=== PATIENT | female | born 1950 | race Two or more races ===

== ENCOUNTER 2022-09-13 13:19 | Outpatient (CLI) | payer OTHER | END 2022-09-13 13:20 | disposition home or self-care (01) | LOC: LAB 13:19 | PROVIDERS: ATTEND Specialist | DX: R80.9 Proteinuria, unspecified (principal); E78.2 Mixed hyperlipidemia; I13.10 Hypertensive heart and chronic kidney disease without heart failure, with stage 1 through stage 4 chronic kidney disease, or unspecified chronic kidney disease; M62.82 Rhabdomyolysis; E03.9 Hypothyroidism, unspecified; D64.9 Anemia, unspecified; E11.9 Type 2 diabetes mellitus without complications; E55.9 Vitamin D deficiency, unspecified; N39.8 Other specified disorders of urinary system; N39.0 Urinary tract infection, site not specified; K92.1 Melena; Z12.11 Encounter for screening for malignant neoplasm of colon; M1A.9XX0 Chronic gout, unspecified, without tophus (tophi) ==